=== PATIENT | male | born 1965 | race Hispanic/Latino ===

== ENCOUNTER → 2020-10-27 | Outpatient (CLI) | payer BC | END | disposition home or self-care (01) | LOC: RAH 10:22 | PROVIDERS: ATTEND Internal Medicine | DX: R13.10 Dysphagia, unspecified (principal) | CPT/HCPCS: 74230; 92611 ==

== ENCOUNTER → 2023-01-03 | Outpatient (CLI) | payer BC | END | disposition home or self-care (01) | LOC: RAH 12:56 | PROVIDERS: ATTEND Clinical Nurse Specialist Family Health | DX: M25.562 Pain in left knee (principal) | CPT/HCPCS: 73560 ==

== ENCOUNTER 2024-02-06 13:50 | Emergency (ER) | payer BC ==
[~2024-02-06] VITALS: Ht 162.6 cm; Wt 90.7 kg
[2024-02-06 14:28] VITALS: BP 99/60; PULSE 86; RESP 18; O2SAT 98
[2024-02-06] MEDS: IBUPROFEN 800 MG TAB PO ONE (14:38)
[2024-02-06] MEDS ORDERED: IBUP-2071 PO (15:30)
== END 2024-02-06 15:53 | disposition home or self-care (01) ==
LOC: EDH 13:50
DX: S80.02XA Contusion of left knee, initial encounter (principal); I10 Essential (primary) hypertension; G89.29 Other chronic pain; Z98.890 Other specified postprocedural states; W08.XXXA Fall from other furniture, initial encounter; Y93.89 Activity, other specified; Y92.89 Other specified places as the place of occurrence of the external cause; Y99.8 Other external cause status
CPT/HCPCS: 29505; 73562

== ENCOUNTER → 2024-02-11 | Outpatient (CLI) | payer BC ==
[~2024-02-11] MED LIST: IBUP-2071 PO
[2024-02-11 18:11] LABS: BODY FLUID RBC 38965 /cu. mm.; BODY FLUID WBC 31262 /cu. mm.
[2024-02-11 19:51] LABS: APPEARANCE BODY FLUID TURBID (CLEAR); BF LYMPHOCYTE 8 %; BF MONOCYTE 6 %; BF TOTAL CELLS COUNTED 100; COLOR,BODY FLUID YELLOW (LT YELLOW); SPECIMENTYPE,BODY FLUID SYNOVIAL; TOTAL VOLUME,BODY FLUID 40 mL
[2024-02-11 20:52] LABS: CRYSTALS, SYNOVIAL FLUID None Seen
== END | disposition home or self-care (01) ==
LOC: LAB 16:04
PROVIDERS: ATTEND Student in an Organized Health Care Education/Training Program
DX: M25.462 Effusion, left knee (principal)
CPT/HCPCS: 87071; 87076; 87086; 87186; 87205; 89051; 89060

== ENCOUNTER → 2024-03-12 | Outpatient (CLI) | payer BC ==
[2024-03-12 14:13] LABS: APPEARANCE BODY FLUID SLIGHTLY CLOUDY (CLEAR); COLOR,BODY FLUID YELLOW (LT YELLOW); SPECIMENTYPE,BODY FLUID SYNOVIAL; TOTAL VOLUME,BODY FLUID 30 mL
[2024-03-12 14:24] LABS: BODY FLUID RBC 1695 /cu. mm.; BODY FLUID WBC 924 /cu. mm.
[2024-03-12 15:47] LABS: BF EOSINOPHIL 5 %; BF LYMPHOCYTE 4 %; BF MONOCYTE 4 %; BF TOTAL CELLS COUNTED 100
[2024-03-12 17:54] LABS: CRYSTALS, SYNOVIAL FLUID None Seen
== END | disposition home or self-care (01) ==
LOC: LAB 11:44
PROVIDERS: ATTEND Student in an Organized Health Care Education/Training Program
DX: M25.462 Effusion, left knee (principal)
CPT/HCPCS: 87071; 87076; 87205; 89051; 89060